=== PATIENT | male | born 1985 | race Caucasian/White ===

== ENCOUNTER 2024-08-25 09:40 | Observation (INO) | payer OTHER, SELFPAY ==
[2024-08-25] VITALS (13 sets, daily range): BP systolic 110–137; BP diastolic 69–89; PULSE 73–91; TEMP 36.3–36.8; O2SAT 96–99; BMI 29.2; BMI 27.0
--- NOTE | 2024-08-25 09:53 | ECG_ITS ---
[facility] Test Date: 2024-08-25 Pat Name: JULIAN XAVIER Department: Room: - Gender: Male Instructional Interventionist: : [id number] Requested By: [id number] Order Number: [id number] Reading MD: VAL KOHLER M.D. Measurements Intervals [place] Rate: 75 P: 41 TX: 184 QRS: 14 QRSD: 96 T: 74 QT: 396 QTc: 424 Interpretive Statements 1100 Sinus rhythm 3434 Septal myocardial infarction, age undetermined 9150 abnormal ECG No previous ECG available for comparison Electronically Signed On 08-25-2024 21:44:07 EDT by VAL KOHLER M.D.
--- NOTE | 2024-08-25 09:53 | ED.GENADUL1 ---
HPI HPI - General Adult General Chief complaint: Nausea/Vomiting/Diarrhea Stated complaint: VOMITTING Time Seen by Provider: 08/25/24 09:41 Source: patient Mode of arrival: walk-in History of Present Illness HPI narrative: 38-year-old male presents for a 3-day history of vomiting. He has not had a fever or diarrhea or hematemesis. He comes from a drug treatment facility where he is in treatment for her methamphetamine abuse. 2 weeks ago he was admitted to a psychiatric facility. He is a diabetic and reports that his blood sugar was checked and it was in the 340 range. Related Data Home Medications ?Medication ?Instructions ?Recorded ?Confirmed buspirone 15 mg tablet 15 mg PO BID 08/25/24 08/25/24 cariprazine 3 mg capsule (Vraylar) 3 mg PO QAM 08/25/24 08/25/24 fluticasone propionate 220 1 inh inhalation Q8H PRN wheezing 08/25/24 08/25/24 mcg/actuation HFA aerosol inhaler gabapentin 400 mg capsule 400 mg PO TID 08/25/24 08/25/24 insulin aspar prot-insulin aspart 1 unit subcut .WM 08/25/24 08/25/24 100 unit/mL (70-30) subcutaneous pen insulin glargine 100 unit/mL (3 40 unit subcut QAM 08/25/24 08/25/24 mL) subcutaneous pen (Lantus Solostar U-100 Insulin) meloxicam 15 mg tablet 15 mg PO .QD 08/25/24 08/25/24 omeprazole 40 mg capsule,delayed 40 mg PO .BIDAC 08/25/24 08/25/24 release sertraline 50 mg tablet 50 mg PO QAM 08/25/24 08/25/24 Allergies Allergy/AdvReac Type Severity Reaction Status Date / Time haloperidol (From Haldol) AdvReac Dry Mucus Verified 08/25/24 09:45 Membranes Opioid HPI Opioid Management Most Recent Opioid Data: No Data to Display Review of Systems ROS Narrative A ten point review of systems is negative except as noted above. PFSH PFSH Social History Little interest or pleasure in doing things: not at all Feeling down, depressed, or hopeless: not at all Exam Narrative Exam Narrative: Nurses note and vital signs reviewed and patient is not hypoxic. General: The patient appears well and in no apparent distress. Patient is resting comfortably on cart. Skin: Warm, dry, no pallor noted. There is no rash noted. Head: Normocephalic, atraumatic Eye: Normal conjunctiva, no drainage, EOMI. PERRL Ears, Nose, Mouth, and Throat: oral mucosa is moderately dry. Nares patent. Cardiovascular: Regular Rate and Rhythm Respiratory: Patient is in no distress, no accessory muscle use, lungs are clear to auscultation, no wheezing, rales or rhonchi Back: non-tender GI: Soft and nontender Musculoskeletal: The patient has no evidence of calf tenderness, no pitting edema, symmetrical pulses noted bilaterally Neurological: A&O, normal speech Psychiatric: Cooperative Constitutional Vital Signs, click to edit/add: Last Vital Signs Temp 98.1 F 08/25/24 09:45 Pulse 82 08/25/24 10:48 Resp 20 08/25/24 10:48 BP 114/76 08/25/24 10:48 Pulse Ox 99 08/25/24 10:48 O2 Del Method Room Air 08/25/24 10:48 Course Vital Signs Vital signs: Vital Signs Temperature 98.1 F 08/25/24 09:45 Pulse Rate 90 08/25/24 09:45 Respiratory Rate 20 08/25/24 09:45 Blood Pressure 137/89 08/25/24 09:45 Pulse Oximetry 98 08/25/24 09:45 Oxygen Delivery Method Room Air 08/25/24 09:45 Temperature 98.1 F 08/25/24 09:45 Pulse Rate 82 08/25/24 10:48 Respiratory Rate 20 08/25/24 10:48 Blood Pressure 114/76 08/25/24 10:48 Pulse Oximetry 99 08/25/24 10:48 Oxygen Delivery Method Room Air 08/25/24 10:48 Medical Decision Making MDM Narrative Medical decision making narrative: The patient was found to be in mild DKA. He was given IV fluids and IV insulin and will be admitted. His VBG pH is 7.28 and he has small acetone as well. Treatment diagnosis and disposition were discussed with the patient. Differential Diagnosis Differential Diagnosis: DKA, hyperglycemia, dehydration Lab Data Lab results reviewed: Yes I reviewed the patient's lab results Labs: Lab Results 08/25/24 08/25/24 08/25/24 Range/Units 09:54 10:05 10:15 WBC 8.2 (4.0-11.0) 10^3/uL RBC 5.13 (4.70-6.10) 10^6/uL Hgb 15.2 (14.0-18.0) g/dL Hct 44.7 (42.0-54.0) % MCV 87.1 (80.0-94.0) fL MCH 29.6 (25.9-34.0) pg MCHC 34.0 (29.9-35.2) g/dL RDW 12.4 (11.0-15.0) % Plt Count 167 (150-450) 10^3/uL MPV 12.4 (9.5-13.5) fL Neut % (Auto) 69.3 (43.0-75.0) % Lymph % (Auto) 23.9 (20.5-60.0) % [place] % (Auto) 4.5 (1.7-12.0) % Eos % (Auto) 1.1 (0.9-7.0) % Baso % (Auto) 0.8 (0.2-2.0) % Neut # (Auto) 5.7 (1.4-6.5) 10^3/uL Lymph # (Auto) 2.0 (1.2-3.8) 10^3/uL [place] # (Auto) 0.4 (0.3-0.8) 10^3/uL Eos # (Auto) 0.1 (0.0-0.7) 10^3/uL Baso # (Auto) 0.1 (0.0-0.1) 10^3/uL Abs Immat Gran (auto) 0.03 (0.00-0.03) 10^3/uL Imm/Tot Granulo (auto) 0.4 (0.0-0.5) % VBG pH 7.279 L (7.330-7.430) VBG pCO2 34.0 L (40.0-52.0) mmHg Sodium 131 L (136-145) mmol/L Potassium 4.1 (3.5-5.1) mmol/L Chloride 93 L (98-107) mmol/L Carbon Dioxide 17.8 L (21.0-32.0) mmol/L Anion Gap 24.3 BUN 23.0 H (7.0-18.0) mg/dL Creatinine 1.47 H (0.70-1.30) mg/dL Est GFR ( Amer) >60 (>=60 mL/min/1.73m^2) Est GFR (Non-Af Amer) 54 L (>=60 mL/min/1.73m^2) BUN/Creatinine Ratio 15.6 Glucose 396 H (74-106) mg/dL Calcium 9.6 (8.5-10.1) mg/dL Urine Color Lt. yellow (YELLOW) Urine Clarity Clear (CLEAR) Urine pH 6.0 (5.0-9.0) Ur Specific [place] 1.025 (1.005-1.025) Urine Protein Negative (NEG/TRACE) mg/dL Urine Glucose (UA) >=1000 A (NEGATIVE) mg/dL Urine Ketones >=80 A (NEGATIVE) mg/dL Urine Occult Blood Negative (NEGATIVE) Urine Nitrite Negative (NEGATIVE) Urine Bilirubin Negative (NEGATIVE) Urine Urobilinogen 1.0 (0.2-1.0) EU/dL Ur Leukocyte Esterase Negative (NEGATIVE) Urine RBC None seen (0-2) #/HPF Urine WBC None seen (NONE SEEN) #/HPF Ur Squamous Epith Cells Rare (NONE/RARE) #/LPF Urine Crystals None seen (None Seen) #/HPF Urine Bacteria Trace A (NONE SEEN) #/HPF Urine Casts None seen (NONE SEEN) #/LPF Urine Mucus None seen (NONE SEEN) Ur Culture Indicated? No Acetone, Qual Small A (NEGATIVE) POC Glucose 375 H (74-106) mg/dL 08/25/24 Range/Units 11:17 WBC (4.0-11.0) 10^3/uL RBC (4.70-6.10) 10^6/uL Hgb (14.0-18.0) g/dL Hct (42.0-54.0) % MCV (80.0-94.0) fL MCH (25.9-34.0) pg MCHC (29.9-35.2) g/dL RDW (11.0-15.0) % Plt Count (150-450) 10^3/uL MPV (9.5-13.5) fL Neut % (Auto) (43.0-75.0) % Lymph % (Auto) (20.5-60.0) % [place] % (Auto) (1.7-12.0) % Eos % (Auto) (0.9-7.0) % Baso % (Auto) (0.2-2.0) % Neut # (Auto) (1.4-6.5) 10^3/uL Lymph # (Auto) (1.2-3.8) 10^3/uL [place] # (Auto) (0.3-0.8) 10^3/uL Eos # (Auto) (0.0-0.7) 10^3/uL Baso # (Auto) (0.0-0.1) 10^3/uL Abs Immat Gran (auto) (0.00-0.03) 10^3/uL Imm/Tot Granulo (auto) (0.0-0.5) % VBG pH (7.330-7.430) VBG pCO2 (40.0-52.0) mmHg Sodium (136-145) mmol/L Potassium (3.5-5.1) mmol/L Chloride (98-107) mmol/L Carbon Dioxide (21.0-32.0) mmol/L Anion Gap BUN (7.0-18.0) mg/dL Creatinine (0.70-1.30) mg/dL Est GFR ( Amer) (>=60 mL/min/1.73m^2) Est GFR (Non-Af Amer) (>=60 mL/min/1.73m^2) BUN/Creatinine Ratio Glucose (74-106) mg/dL Calcium (8.5-10.1) mg/dL Urine Color (YELLOW) Urine Clarity (CLEAR) Urine pH (5.0-9.0) Ur Specific [place] (1.005-1.025) Urine Protein (NEG/TRACE) mg/dL Urine Glucose (UA) (NEGATIVE) mg/dL Urine Ketones (NEGATIVE) mg/dL Urine Occult Blood (NEGATIVE) Urine Nitrite (NEGATIVE) Urine Bilirubin (NEGATIVE) Urine Urobilinogen (0.2-1.0) EU/dL Ur Leukocyte Esterase (NEGATIVE) Urine RBC (0-2) #/HPF Urine WBC (NONE SEEN) #/HPF Ur Squamous Epith Cells (NONE/RARE) #/LPF Urine Crystals (None Seen) #/HPF Urine Bacteria (NONE SEEN) #/HPF Urine Casts (NONE SEEN) #/LPF Urine Mucus (NONE SEEN) Ur Culture Indicated? Acetone, Qual (NEGATIVE) POC Glucose 379 H (74-106) mg/dL ECG Data Attestation: I personally reviewed and interpreted this ECG as follows: (KG interpretation shows sinus rhythm with rate of 75) Discharge Plan Discharge Chief Complaint: Nausea/Vomiting/Diarrhea Clinical Impression: Diabetic ketoacidosis Patient Disposition: Admitted As Inpatient Time of Disposition Decision: 11:32 Condition: Fair
[2024-08-25 09:55] LABS: Glucometer 375 mg/dL (74-106)
[2024-08-25] MEDS: 0.9 % SODIUM CHLORIDE 1,000 ML 1000 ML IV ×3 (10:11→12:39)
[2024-08-25] MEDS: ONDANSETRON PF 4 MG/2 ML VIAL IV ×2 (10:12→16:11)
[2024-08-25 10:14] LABS: Basophils Absolute Auto 0.1 10^3/uL (0.0-0.1); Basophils Percent Auto 0.8 % (0.2-2.0); Eosinophils Absolute Auto 0.1 10^3/uL (0.0-0.7); Eosinophils Percent Auto 1.1 % (0.9-7.0); Hematocrit 44.7 % (42.0-54.0); Hemoglobin 15.2 g/dL (14.0-18.0); Immature Granulocytes Abs Auto 0.03 10^3/uL (0.00-0.03); Immature Granulocytes Pct Auto 0.4 % (0.0-0.5); Lymphocytes Percent Auto 23.9 % (20.5-60.0); Mean Corpuscular Hemoglobin 29.6 pg (25.9-34.0); Mean Corpuscular Volume 87.1 fL (80.0-94.0); Mean Platelet Volume 12.4 fL (9.5-13.5); Monocytes Absolute Auto 0.4 10^3/uL (0.3-0.8); Monocytes Percent Auto 4.5 % (1.7-12.0); Neutrophils Absolute Auto 5.7 10^3/uL (1.4-6.5); Neutrophils Percent Auto 69.3 % (43.0-75.0); Platelet Count 167 10^3/uL (150-450); Red Blood Count 5.13 10^6/uL (4.70-6.10); Red Cell Distribution Width 12.4 % (11.0-15.0); White Blood Count 8.2 10^3/uL (4.0-11.0); pH VBG 7.279 (7.330-7.430)
[2024-08-25 10:22] LABS: Acetone SMALL (NEGATIVE)
[2024-08-25 10:24] LABS: Bilirubin Urine NEGATIVE (NEGATIVE); Blood Urine NEGATIVE (NEGATIVE); Clarity Urine CLEAR (CLEAR); Color Urine LT. YELLOW (YELLOW); Glucose Urine UA >=1000 mg/dL (NEGATIVE); Ketones Urine >=80 mg/dL (NEGATIVE); Leukocyte Esterase Urine NEGATIVE (NEGATIVE); Nitrite Urine NEGATIVE (NEGATIVE); Protein Urine NEGATIVE (NEG/TRACE); Specific Gravity Urine 1.025 (1.005-1.025)
[2024-08-25 10:29] LABS: Anion Gap 24.3; BUN Creatinine Ratio 15.6; Calcium 9.6 mg/dL (8.5-10.1); Carbon Dioxide 17.8 mmol/L (21.0-32.0); Chloride 93 mmol/L (98-107); Estimated GFR (African America >60 (>=60 mL/min/1.73m^2); Estimated GFR (Non-African Ame 54 (>=60 mL/min/1.73m^2); Glucose 396 mg/dL (74-106); Potassium 4.1 mmol/L (3.5-5.1); Sodium 131 mmol/L (136-145)
[2024-08-25 10:35] LABS: Bacteria Urine TRACE #/HPF (NONE SEEN); Cast Seen? NONE SEEN #/LPF (NONE SEEN); Crystals Seen? None Seen #/HPF (None Seen); Mucus Urine NONE SEEN (NONE SEEN); RBC Urine NONE SEEN #/HPF (0-2); Squamous Epithelial Cell Urine RARE #/LPF (NONE/RARE); Urine Culture Indicated NO; WBC Urine NONE SEEN #/HPF (NONE SEEN)
[2024-08-25 11:19] LABS: Glucometer 379 mg/dL (74-106)
[2024-08-25] MEDS: INSULIN REGULAR, HUMAN (100 UNIT/ML) 10 ML MDV 10 UNIT IV (11:27)
[2024-08-25 11:49] LABS: Estimated Average Glucose 177 mg/dL; Glycohemoglobin A1C 7.8 % (4.5-6.2)
[2024-08-25 12:06] LABS: Glucometer 306 mg/dL (74-106)
[2024-08-25] MEDS: HEPARIN SODIUM (PORCINE) 5,000 UNIT/ML VIAL 5000 UNIT SUBQ ×2 (12:39→21:14)
[2024-08-25] MEDS: POTASSIUM CHLORIDE 10 MEQ ER TABLET 40 MEQ PO (12:39)
[2024-08-25] MEDS: SODIUM CHLORIDE 0.45 % 1,000 ML 150 ML IV ×2 (13:45→20:38)
[2024-08-25] MEDS: GABAPENTIN 400 MG CAPSULE PO ×2 (13:45→21:14)
--- NOTE | 2024-08-25 14:10 | SWNOTE1 ---
SW consulted for housing/alf. SW reviewed chart and it says pt is from [facility]. SW to speak with pt.
--- NOTE | 2024-08-25 14:43 | SWNOTE1 ---
SW consulted for housing/skilled nursing. SW stopped in to speak with pt about [facility] and his discharge plans. Pt voiced he has been there for about 10 days. He stated he was at [facility] and they recommended he go to [facility] as he has history of drug use. SW asked the last time he used? Pt voiced it has been awhile, since like April. He stated the doctor at [facility] had told him he had used about a week ago, but he does not remember that. SW asked prior to that where he was living? Pt stated he was in [place]. He stated he was at the homeless skilled nursing called the [facility]. He was working, but is not at this time. 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 He voiced he does not feel like [facility] is the place for him. He does not want to be held at some place 27/11 and see the same people. He again stated he wants to work. Pt then spoke about having a psych history as well. He stated he has been on psych meds and in and out of facilities since he was 10-12 years old. The most recent being 2022. SW then asked his plans for discharge from here? He stated his stuff is at [facility] and he will need that. Pt then voiced SW can speak with his watch caser at [facility], who is Markell. SW let him know that SW will also call [facility] as well. SW asked if he had any issues there that they may not take him back? Pt stated no, not that he is aware of. SW to call Markell and [facility]. SW called and spoke to Markell at [facility]. He voiced pt can make his own decisions and if that is what he wants he can do that. He is not pink slipped. SANAM then received a call back from [facility] and spoke with Rajinder who is the nurse practitioner at [facility]. He stated they can bring pt his stuff if he does not want to return. SW did ask if they would assist with transport? He stated no, they usually call pt's insurance and they assist. SW asked if someone from [facility] would come talk to pt and encourage pt to make the best decision possible in regards to his recovery. Markell stated yes, but they would need to hear that from the patient. SANAM to keep [facility] updated. SW to talk with pt again.
--- NOTE | 2024-08-25 14:47 | P.HP_ITS ---
HPI H&P: HPI History of Present Illness Chief complaint: VOMITING, DKA Narrative: 38 y o male with PMHx of T1DM, presented with generalized weakness, nausea/vomiting x 1-2 days. Denies abdominal pain, Diarrhea, constipation. Patient also denies urinary symptoms. He came from [facility], a local rehab facility for substance abuse treatment where patient has been living for 1 week. He uses Methamphetamines and his last use was a little over a week. Denies IVD opioid use. No prior hx of DKA. Reports compliance with Insulin, dietary restrictions. Work up in ED c/w DKA, OZZY. Patient received IV insulin, IVF Bolus and hospitalist team was consulted for admission. At the time of my evaluation, patient felt well overall but was still nauseous and felt overall weak. Opioid HPI Opioid Management Most Recent Pain and Opioid Data: Last Pain Assessment 08/25/24 13:51 Last ORT Total Score 8 08/25/24 12:17 08/25/24 Last ORT Risk Category High Risk 08/25/24 12:17 08/25/24 Review of Systems ROS Status of ROS 10 or more systems reviewed and unremark able except as noted in history and below [facility] Medical History (Updated 08/25/24 @ 14:54 by Shaikh Jamison MD) Methamphetamine abuse ?F15.10 - Other stimulant abuse, uncomplicated (ICD-10) Keratoconus of both eyes ?H18.603 - Keratoconus, unspecified, bilateral (ICD-10) Drug abuse ?F19.10 - Other psychoactive substance abuse, uncomplicated (ICD-10) History of kidney stones ?Z87.442 - Personal history of urinary calculi (ICD-10) Diabetic neuropathy ?E11.40 - Type 2 diabetes mellitus with diabetic neuropathy, unspecified (ICD-10) Anxiety ?F41.9 - Anxiety disorder, unspecified (ICD-10) Bipolar 1 disorder ?F31.9 - Bipolar disorder, unspecified (ICD-10) GERD (gastroesophageal reflux disease) ?K21.9 - Gastro-esophageal reflux disease without esophagitis (ICD-10) Asthma ?J45.909 - Unspecified asthma, uncomplicated (ICD-10) Diabetes ?E11.9 - Type 2 diabetes mellitus without complications (ICD-10) Family History (Updated 08/25/24 @ 12:19 by Adela Hernández) Father Family history of CHF (congestive heart failure) Family history of hypertension Family history of stroke Grandmother Family history of diabetes mellitus Other Family history of COPD (chronic obstructive pulmonary disease) Social History (Updated 08/25/24 @ 12:26 by Johanna Moreland RN) Within the past year, how often did you have a drink containing alcohol: never Within the past year, how often did you have six or more drinks on one occasion: never Score interpretation: A score less than 4 is consistent with normal alcohol consumption. Smoking status: Current every day smoker Do you use any of these nicotine containing products: vaping products Non-prescribed substance use: former substance user and amphetamines/methamphetamines Highest level of school completed/degree received: 11th grade Are you now , , , , never or living with a partner: never In a typical week, how many times do you talk on the telephone with family, friends, or neighbors: never How often do you get together with friends or relatives: never How often do you attend restorationist or sikhism services: never Do you belong to any clubs or organizations such as restorationist groups unions, [employer] or athletic groups, or school groups: no Total score: 0 Score interpretation: A score of less than or equal to 1 indicates the most socially isolated. Little interest or pleasure in doing things: not at all Feeling down, depressed, or hopeless: not at all Feel stressed/tense/nervous/anxious/difficulty sleeping: rather much Life stressors: loss of job Meds Home Medications and Allergies Home Medications ?Medication ?Instructions ?Recorded ?Confirmed ?Type buspirone 15 mg tablet 15 mg PO BID 08/25/24 08/25/24 History cariprazine 3 mg capsule (Vraylar) 3 mg PO QAM 08/25/24 08/25/24 History gabapentin 400 mg capsule 400 mg PO TID 08/25/24 08/25/24 History insulin aspar prot-insulin aspart 1 unit subcut .WM 08/25/24 08/25/24 History 100 unit/mL (70-30) subcutaneous pen insulin glargine 100 unit/mL (3 40 unit subcut QAM 08/25/24 08/25/24 History mL) subcutaneous pen (Lantus Solostar U-100 Insulin) meloxicam 15 mg tablet 15 mg PO .QD 08/25/24 08/25/24 History omeprazole 40 mg capsule,delayed 40 mg PO .BIDAC 08/25/24 08/25/24 History release sertraline 50 mg tablet 50 mg PO QAM 08/25/24 08/25/24 History Allergies Allergy/AdvReac Type Severity Reaction Status Date / Time haloperidol (From Haldol) AdvReac Dry Mucus Verified 08/25/24 09:45 Membranes Exam Constitutional Vital Signs, click to edit/add: Last Vital Signs Temp 97.3 F L 08/25/24 12:17 Pulse 78 08/25/24 14:00 Resp 18 08/25/24 12:17 BP 110/73 08/25/24 12:17 Pulse Ox 97 08/25/24 12:17 O2 Del Method Room Air 08/25/24 12:17 Documenting provider has reviewed patient's vital signs: yes Common normals: no apparent distress and oriented x3 General appearance: cooperative HENMT Common normals: normocephalic and head/scalp atraumatic Head and scalp: normocephalic and atraumatic Eye Common normals: conjunctivae normal and no scleral icterus Conjunctiva: conjunctiva(e) normal Respiratory Common normals: normal respiratory effort and clear to auscultation bilaterally Effort & inspection: able to speak in complete sentences Auscultation: clear to auscultation bilaterally Cardio Common normals: regular rate, S1 normal heart sound and S2 normal heart sound Rate: regular rate Heart sounds: S1 normal and S2 normal GI Common normals: Normal to inspection, nondistended, normoactive bowel sounds present, soft to palpation, non-tender and no hepatosplenomegaly Palpation: soft and no hepatosplenomegaly Extremity Common normals: no clubbing, cyanosis or edema Neuro Common normals: oriented x3, moves all extremities and no focal motor deficits Psych Common normals: mental status grossly normal, denies hallucinations, denies homicidal ideation and denies suicidal ideation Results Labs Labs: Short CBC 08/25/24 Range/Units 10:05 WBC 8.2 (4.0-11.0) 10^3/uL Hgb 15.2 (14.0-18.0) g/dL Hct 44.7 (42.0-54.0) % Plt Count 167 (150-450) 10^3/uL BMP 08/25/24 10:05 Sodium 131 L Potassium 4.1 Chloride 93 L Carbon Dioxide 17.8 L BUN 23.0 H Creatinine 1.47 H Glucose 396 H Calcium 9.6 Urine 08/25/24 Range/Units 10:15 Urine Color Lt. yellow (YELLOW) Urine Clarity Clear (CLEAR) Urine pH 6.0 (5.0-9.0) Ur Specific [place] 1.025 (1.005-1.025) Urine Protein Negative (NEG/TRACE) mg/dL Urine Glucose (UA) >=1000 A (NEGATIVE) mg/dL ABG ABG results: 08/25/24 10:05 VBG pH 7.279 L VBG pCO2 34.0 L Assessment and Plan Assessment and Plan (1) Diabetic ketoacidosis: Qualifiers: Diabetes mellitus type: type 1 Diabetes mellitus complication detail: without coma Qualified Code(s): E10.10 - Type 1 diabetes mellitus with ketoacidosis without coma (2) OZZY (acute kidney injury): (3) Nausea & vomiting: Qualifiers: Vomiting type: unspecified Qualified Code(s): R11.2 - Nausea with vomiting, unspecified (4) Methamphetamine abuse: (5) GERD (gastroesophageal reflux disease): Qualifiers: Esophagitis presence: without esophagitis Qualified Code(s): K21.9 - Gastro-esophageal reflux disease without esophagitis (6) Bipolar 1 disorder: Plan Patient presented with nausea/vomting likely sec to DKA. Meets criteria for DKA - Has metabolic acidosis, hyperkalemia and positive serum acetone. Ordered 1 L NS bolus. After wards, he will be started 0.45 NS at 150/hr. Patient took his lantus in the morning. Has mild DKA and anticipating that his AG will close with IV hydration and SQ insulin. SSI q4. Repeat BMP at 3 pm. Monitor blood glucose close, serum electrolytes, UO closely. Will need tele monitoring. Ordered diabetic diet for the patient. Normal renal fx at baseline. P/w Cr of 1.4. Likely pre renal. Monitor UO, avoid nephrotoxic drugs. If no improvement in renal function, will need renal US but very unlikely that he has obstructive uropathy. No evidence of withdrawal from methamphetamine. Mood is stable and will resume his home medications for Bipolar. C/w IVF, Accu checks and SQ insulin q4. C/w lantus 40 units qam. Will determine next course of action/treatment based on BMP at 3 pm. Anticipate needing overnight hydration, monitoring at the minimum. If no improvement in AG, Blood glucose, will need IV insulin.
[2024-08-25 15:02] LABS: Anion Gap 17.5; Calcium 8.3 mg/dL (8.5-10.1); Carbon Dioxide 21.3 mmol/L (21.0-32.0); Chloride 99 mmol/L (98-107); Estimated GFR (African America >60 (>=60 mL/min/1.73m^2); Estimated GFR (Non-African Ame >60 (>=60 mL/min/1.73m^2); Glucose 280 mg/dL (74-106); Potassium 4.8 mmol/L (3.5-5.1); Sodium 133 mmol/L (136-145)
--- NOTE | 2024-08-25 15:36 | SWNOTE1 ---
SANAM spoke to pt again and let him know that SW spoke to Rajinder at [facility] and also spoke with [facility]. Pt again voiced he is positive he does NOT want to return to [facility] and he would like his belongings and he does NOT want to speak to anyone at [facility]. He voiced he appreciated everyone there, but it is not for him. He would like SW to look in to transport through his insurance as he does not have anyone else that can assist with transport. SW to call. SANAM called [facility] and let them know he is not returning and would like his belongings. Rajinder voiced someone will bring them out. SANAM then called pt's insurance and it is called [employer]. They allowed SW to schedule transport for tomorrow and if SW needs to cancel SW just has to call back and schedule for difference date. SANAM scheduled transport time for 12:30, this is all pending pt is medically stable for discharge as well. SANAM notified nurse of time and plan for discharge. SANAM also messaged Dr. Swift, who then forwarded message to Dr. Nicole. [facility] in [place] voiced that intakes are 10-2, but if SANAM calls and lets them know he may be later than 2:00, they will accommodate as they know the patient.
[2024-08-25] MEDS: PANTOPRAZOLE SODIUM 40 MG TABLET.DR PO (16:11)
[2024-08-25] MEDS: INSULIN ASPART 300 UNIT/3 ML PEN SUBQ ×3 (16:13→23:42)
[2024-08-25 16:14] LABS: Glucometer 265 mg/dL (74-106)
[2024-08-25] MEDS: INSULIN GLARGINE 300 UNIT/3 ML INSULN.PEN 15 UNIT SQ (18:02)
[2024-08-25 19:41] LABS: Glucometer 334 mg/dL (74-106)
[2024-08-25] MEDS: BUSPIRONE HCL 15 MG TABLET PO (21:14)
[2024-08-25 23:45] LABS: Glucometer 246 mg/dL (74-106)
[2024-08-26] VITALS (10 sets, daily range): BP systolic 100–114; BP diastolic 60–75; PULSE 64–85; TEMP 36.5–36.6; O2SAT 95–98
[2024-08-26] MEDS: SODIUM CHLORIDE 0.45 % 1,000 ML 150 ML IV (03:21)
[2024-08-26 04:47] LABS: Glucometer 172 mg/dL (74-106)
[2024-08-26] MEDS: HEPARIN SODIUM (PORCINE) 5,000 UNIT/ML VIAL 5000 UNIT SUBQ (05:35)
[2024-08-26] MEDS: GABAPENTIN 400 MG CAPSULE PO (05:35)
[2024-08-26 06:04] LABS: Basophils Percent Auto 0.6 % (0.2-2.0); Eosinophils Absolute Auto 0.2 10^3/uL (0.0-0.7); Eosinophils Percent Auto 3.6 % (0.9-7.0); Hematocrit 34.5 % (42.0-54.0); Hemoglobin 11.9 g/dL (14.0-18.0); Immature Granulocytes Abs Auto 0.01 10^3/uL (0.00-0.03); Immature Granulocytes Pct Auto 0.2 % (0.0-0.5); Lymphocytes Percent Auto 36.7 % (20.5-60.0); Mean Corpuscular HGB Conc 34.5 g/dL (29.9-35.2); Mean Corpuscular Hemoglobin 29.8 pg (25.9-34.0); Mean Corpuscular Volume 86.5 fL (80.0-94.0); Mean Platelet Volume 12.4 fL (9.5-13.5); Monocytes Absolute Auto 0.4 10^3/uL (0.3-0.8); Monocytes Percent Auto 6.8 % (1.7-12.0); Neutrophils Absolute Auto 2.8 10^3/uL (1.4-6.5); Neutrophils Percent Auto 52.1 % (43.0-75.0); Platelet Count 113 10^3/uL (150-450); Red Blood Count 3.99 10^6/uL (4.70-6.10); Red Cell Distribution Width 12.4 % (11.0-15.0); White Blood Count 5.3 10^3/uL (4.0-11.0)
[2024-08-26 06:26] LABS: Alanine Aminotransferase 139 U/L (16-63); Albumin Globulin Ratio 1.2; Albumin Level 3.3 g/dL (3.4-5.0); Alkaline Phosphatase 76 U/L (46-116); Anion Gap 13.2; Aspartate Amino Transferase 44 U/L (15-37); BUN Creatinine Ratio 10.5; Bilirubin Total 0.8 mg/dL (0.2-1.0); Calcium 8.6 mg/dL (8.5-10.1); Carbon Dioxide 26.6 mmol/L (21.0-32.0); Chloride 102 mmol/L (98-107); Estimated GFR (African America >60 (>=60 mL/min/1.73m^2); Estimated GFR (Non-African Ame >60 (>=60 mL/min/1.73m^2); Globulin 2.8 g/dL; Glucose 178 mg/dL (74-106); Potassium 3.8 mmol/L (3.5-5.1); Sodium 138 mmol/L (136-145); Total Protein 6.1 g/dL (6.4-8.2)
[2024-08-26 07:32] LABS: Glucometer 163 mg/dL (74-106)
--- NOTE | 2024-08-26 07:43 | CM.NOTE ---
Rounds made with Dr. Nicole, pt [facility] [place] [facility]. Pt has transportation set up, scheduled for 12:30 per note.
[2024-08-26] MEDS: INSULIN ASPART 300 UNIT/3 ML PEN SUBQ ×2 (08:08→11:35)
[2024-08-26] MEDS: INSULIN GLARGINE 300 UNIT/3 ML INSULN.PEN 40 UNIT SQ (08:09)
[2024-08-26] MEDS: PANTOPRAZOLE SODIUM 40 MG TABLET.DR PO (08:12)
[2024-08-26] MEDS: BUSPIRONE HCL 15 MG TABLET PO (08:12)
[2024-08-26] MEDS: CARIPRAZINE 3 MG 3 EACH PO (08:13)
[2024-08-26] MEDS: SERTRALINE HCL 50 MG TABLET PO (08:13)
--- NOTE | 2024-08-26 08:36 | P.DS_ITS ---
DS: Providers Provider Date of admission: 08/25/24 12:10 Primary care physician: Non-Staff Physician, Consults: 08/25/24 Consult to Resolution Manager Routine Reason for consult:: Housing/Custodial DS: Diagnosis Discharge Diagnosis (1) Diabetic ketoacidosis: Qualifiers: Diabetes mellitus complication detail: without coma Diabetes mellitus type: type 1 Qualified Code(s): E10.10 - Type 1 diabetes mellitus with ketoacidosis without coma (2) OZZY (acute kidney injury): (3) Nausea & vomiting: Qualifiers: Vomiting type: unspecified Qualified Code(s): R11.2 - Nausea with vomiting, unspecified (4) Methamphetamine abuse: (5) GERD (gastroesophageal reflux disease): Qualifiers: Esophagitis presence: without esophagitis Qualified Code(s): K21.9 - Gastro-esophageal reflux disease without esophagitis (6) Bipolar 1 disorder: Plan (1) Diabetic ketoacidosis: Qualifiers: Diabetes mellitus type: type 1 Diabetes mellitus complication detail: without coma Qualified Code(s): E10.10 - Type 1 diabetes mellitus with ketoacidosis without coma (2) OZZY (acute kidney injury): (3) Nausea & vomiting: Qualifiers: Vomiting type: unspecified Qualified Code(s): R11.2 - Nausea with vomiting, unspecified (4) Methamphetamine abuse: (5) GERD (gastroesophageal reflux disease): Qualifiers: Esophagitis presence: without esophagitis Qualified Code(s): K21.9 - Gastro-esophageal reflux disease without esophagitis (6) Bipolar 1 disorder: Thrombocytopenia Hyponatremia Acute elevation in creatinine Elevated liver function DS: Summary Hospital Course Hospital Course: Patient admitted after being presented to detox facility, having hyperemesis unable to control there. Transferred to ER patient found to have mild DKA. He was given aggressive fluid resuscitation and subcu insulin and his sugars have improved, does have some mild nausea this morning but able to tolerate a diet last night. If he is able to eat well today, he will continue to work on diet medications will remain the same, make sure staying hydrated, currently going back [facility] his [facility] and not detox from his methamphetamine treatment. Medications see list. Follow-up with PCP at discharge Time Spent with Patient Time attestation: Total time spent providing and/or coordinating discharge services: Exam Constitutional Vital Signs, click to edit/add: Last Vital Signs Temp 97.7 F 08/26/24 07:33 Pulse 85 08/26/24 08:00 Resp 18 08/26/24 07:33 BP 109/62 08/26/24 07:33 Pulse Ox 98 08/26/24 07:33 O2 Del Method Room Air 08/26/24 07:33 Documenting provider has reviewed patient's vital signs: yes Common normals: no apparent distress Chest Common normals: inspection of chest normal Respiratory Common normals: normal respiratory effort and no retractions Cardio Common normals: regular rate, regular rhythm and no murmurs GI Common normals: Normal to inspection, nondistended, normoactive bowel sounds present, soft to palpation, non-tender, no hepatosplenomegaly and no masses Neuro Common normals: oriented x3, CN's II-XII intact bilaterally and moves all extremities DS: Data Data Completed and Pending Labs on day of discharge: Labs from last 24 hours 08/26/24 08/26/24 08/26/24 07:31 05:46 04:44 WBC 5.3 RBC 3.99 L Hgb 11.9 L Hct 34.5 L MCV 86.5 MCH 29.8 MCHC 34.5 RDW 12.4 Plt Count 113 L MPV 12.4 Neut % (Auto) 52.1 Lymph % (Auto) 36.7 [place] % (Auto) 6.8 Eos % (Auto) 3.6 Baso % (Auto) 0.6 Neut # (Auto) 2.8 Lymph # (Auto) 2.0 [place] # (Auto) 0.4 Eos # (Auto) 0.2 Baso # (Auto) 0.0 Abs Immat Gran (auto) 0.01 Imm/Tot Granulo (auto) 0.2 VBG pH VBG pCO2 Sodium 138 Potassium 3.8 Chloride 102 Carbon Dioxide 26.6 Anion Gap 13.2 BUN 11.0 Creatinine 1.05 Est GFR ( Amer) >60 Est GFR (Non-Af Amer) >60 BUN/Creatinine Ratio 10.5 Glucose 178 H Estimat Average Glucose Hemoglobin A1c Calcium 8.6 Total Bilirubin 0.8 AST 44 H ALT 139 H Alkaline Phosphatase 76 Total Protein 6.1 L Albumin 3.3 L Globulin 2.8 Albumin/Globulin Ratio 1.2 Urine Color Urine Clarity Urine pH Ur Specific [place] Urine Protein Urine Glucose (UA) Urine Ketones Urine Occult Blood Urine Nitrite Urine Bilirubin Urine Urobilinogen Ur Leukocyte Esterase Urine RBC Urine WBC Ur Squamous Epith Cells Urine Crystals Urine Bacteria Urine Casts Urine Mucus Ur Culture Indicated? Acetone, Qual POC Glucose 163 H 172 H 08/25/24 08/25/24 08/25/24 23:41 19:37 16:13 WBC RBC Hgb Hct MCV MCH MCHC RDW Plt Count MPV Neut % (Auto) Lymph % (Auto) [place] % (Auto) Eos % (Auto) Baso % (Auto) Neut # (Auto) Lymph # (Auto) [place] # (Auto) Eos # (Auto) Baso # (Auto) Abs Immat Gran (auto) Imm/Tot Granulo (auto) VBG pH VBG pCO2 Sodium Potassium Chloride Carbon Dioxide Anion Gap BUN Creatinine Est GFR ( Amer) Est GFR (Non-Af Amer) BUN/Creatinine Ratio Glucose Estimat Average Glucose Hemoglobin A1c Calcium Total Bilirubin AST ALT Alkaline Phosphatase Total Protein Albumin Globulin Albumin/Globulin Ratio Urine Color Urine Clarity Urine pH Ur Specific [place] Urine Protein Urine Glucose (UA) Urine Ketones Urine Occult Blood Urine Nitrite Urine Bilirubin Urine Urobilinogen Ur Leukocyte Esterase Urine RBC Urine WBC Ur Squamous Epith Cells Urine Crystals Urine Bacteria Urine Casts Urine Mucus Ur Culture Indicated? Acetone, Qual POC Glucose 246 H 334 H 265 H 08/25/24 08/25/24 08/25/24 14:50 12:06 11:17 WBC RBC Hgb Hct MCV MCH MCHC RDW Plt Count MPV Neut % (Auto) Lymph % (Auto) [place] % (Auto) Eos % (Auto) Baso % (Auto) Neut # (Auto) Lymph # (Auto) [place] # (Auto) Eos # (Auto) Baso # (Auto) Abs Immat Gran (auto) Imm/Tot Granulo (auto) VBG pH VBG pCO2 Sodium 133 L Potassium 4.8 Chloride 99 Carbon Dioxide 21.3 Anion Gap 17.5 BUN 19.0 H Creatinine 1.27 Est GFR ( Amer) >60 Est GFR (Non-Af Amer) >60 BUN/Creatinine Ratio 15.0 Glucose 280 H Estimat Average Glucose Hemoglobin A1c Calcium 8.3 L Total Bilirubin AST ALT Alkaline Phosphatase Total Protein Albumin Globulin Albumin/Globulin Ratio Urine Color Urine Clarity Urine pH Ur Specific [place] Urine Protein Urine Glucose (UA) Urine Ketones Urine Occult Blood Urine Nitrite Urine Bilirubin Urine Urobilinogen Ur Leukocyte Esterase Urine RBC Urine WBC Ur Squamous Epith Cells Urine Crystals Urine Bacteria Urine Casts Urine Mucus Ur Culture Indicated? Acetone, Qual POC Glucose 306 H 379 H 08/25/24 08/25/24 08/25/24 10:15 10:05 09:54 WBC 8.2 RBC 5.13 Hgb 15.2 Hct 44.7 MCV 87.1 MCH 29.6 MCHC 34.0 RDW 12.4 Plt Count 167 MPV 12.4 Neut % (Auto) 69.3 Lymph % (Auto) 23.9 [place] % (Auto) 4.5 Eos % (Auto) 1.1 Baso % (Auto) 0.8 Neut # (Auto) 5.7 Lymph # (Auto) 2.0 [place] # (Auto) 0.4 Eos # (Auto) 0.1 Baso # (Auto) 0.1 Abs Immat Gran (auto) 0.03 Imm/Tot Granulo (auto) 0.4 VBG pH 7.279 L VBG pCO2 34.0 L Sodium 131 L Potassium 4.1 Chloride 93 L Carbon Dioxide 17.8 L Anion Gap 24.3 BUN 23.0 H Creatinine 1.47 H Est GFR ( Amer) >60 Est GFR (Non-Af Amer) 54 L BUN/Creatinine Ratio 15.6 Glucose 396 H Estimat Average Glucose 177 Hemoglobin A1c 7.8 H Calcium 9.6 Total Bilirubin AST ALT Alkaline Phosphatase Total Protein Albumin Globulin Albumin/Globulin Ratio Urine Color Lt. yellow Urine Clarity Clear Urine pH 6.0 Ur Specific [place] 1.025 Urine Protein Negative Urine Glucose (UA) >=1000 A Urine Ketones >=80 A Urine Occult Blood Negative Urine Nitrite Negative Urine Bilirubin Negative Urine Urobilinogen 1.0 Ur Leukocyte Esterase Negative Urine RBC None seen Urine WBC None seen Ur Squamous Epith Cells Rare Urine Crystals None seen Urine Bacteria Trace A Urine Casts None seen Urine Mucus None seen Ur Culture Indicated? No Acetone, Qual Small A POC Glucose 375 H Discharge Plan Discharge Disposition: Home, Self-Care Condition: Fair Discharge Medications: New ondansetron 4 mg tablet,disintegrating 4 mg PO Q4H PRN (Reason: nausea and vomiting) Qty: 20 0RF Continued buspirone 15 mg tablet 15 mg PO BID gabapentin 400 mg capsule 400 mg PO TID meloxicam 15 mg tablet 15 mg PO .QD sertraline 50 mg tablet 50 mg PO QAM insulin glargine [Lantus Solostar U-100 Insulin] 100 unit/mL (3 mL) insulin pen 40 unit SUBCUT QAM insulin asp prt-insulin aspart 100 unit/mL (70-30) insulin pen 1 unit SUBCUT .WM Vraylar 3 mg capsule 3 mg PO QAM aripiprazole 15 mg tablet 15 mg PO .q evening citalopram 40 mg tablet 40 mg PO DAILY melatonin 10 mg capsule 10 mg PO .q hs PRN (Reason: sleep) multivitamin Tablet 1 tab PO DAILY naloxone 4 mg/actuation spray,non-aerosol 1 spray INTRANASAL Q3M PRN (Reason: opioid overdose) acetaminophen 500 mg tablet 1,000 mg PO Q6H PRN (Reason: fever or pain) quetiapine 200 mg tablet 200 mg PO .q bedtime polyethylene glycol 3350 17 gram/dose powder 17 g PO DAILY hydrocortisone 2.5 % cream 1 applic topical BID PRN (Reason: skin irritation) Print Language: Surinamese Forms: Portal Instructions
--- NOTE | 2024-08-26 09:47 | SWNOTE1 ---
Pt is medically stable for discharge today. SW stopped in to speak with pt. Pt confirmed he does still want to go to [facility] (homeless care home in [place]). Pt does have his belongings from [facility]. SW confirmed with pt that transport from insurance will be here around 12:30. SW updated pt's nurse as well.
--- NOTE | 2024-08-26 11:01 | SWNOTE1 ---
Pt needed a new physician to follow up with in [place]. SANAM went on [employer] website and started calling physicians in [place]. A few said they are not taking new patients and one dismissed pt from practice for no shows. SANAM was able to schedule a new appointment with [facility] in [place] for 09/02/24 at 2:00pm. SANAM let nursing know and added it to pt's discharge paperwork.
[2024-08-26 11:19] LABS: Glucometer 280 mg/dL (74-106)
--- NOTE | 2024-08-27 13:09 | CM.DCFOLLOWU ---
08/27 1st attempt, no answer
--- NOTE | 2024-08-28 14:26 | CM.DCFOLLOWU ---
Person spoke with:patient How are you feeling?well How is your pain?none Did you understand your discharge instructions?yes Do you have any questions about your discharge instructions?no Were you given any prescriptions at discharge?yes Were you able to get your prescriptions filled?yes Do you understand how to take your medications as ordered?yes Do you have any questions about your follow up appointment and do you plan to keep your follow up appointment? no questions, reviewed follow up Is there anything else that you would like to discuss?no Questions/Comments/Concerns/Other: none
== END 2024-08-26 12:18 | disposition home or self-care (01) ==
LOC: ER 11:32 → MS 08-26 08:36
PROVIDERS: Admitting Provider Internal Medicine; Emergency Provider Emergency Medicine; Visit Provider Internal Medicine
DX: E10.10 Type 1 diabetes mellitus with ketoacidosis without coma (principal); N17.9 Acute kidney failure, unspecified; R11.2 Nausea with vomiting, unspecified; F15.10 Other stimulant abuse, uncomplicated; K21.9 Gastro-esophageal reflux disease without esophagitis; F31.9 Bipolar disorder, unspecified; D69.6 Thrombocytopenia, unspecified; E87.1 Hypo-osmolality and hyponatremia; R79.89 Other specified abnormal findings of blood chemistry; Z59.01 Sheltered homelessness; Z79.4 Long term (current) use of insulin; R53.1 Weakness; F17.290 Nicotine dependence, other tobacco product, uncomplicated; Z59.89 Other problems related to housing and economic circumstances
CPT/HCPCS: 36415; 71045; 80048; 80053; 81001; 82009; 82800; 82948; 83036; 85025; 93005; 94761; 96361; 96372; 96374; 96376; 99285; 99406; G0378; J1644; J1817; J2405